=== PATIENT | male | born 1940 | race Caucasian/White ===

== ENCOUNTER 2025-05-26 12:21 | Inpatient (IN) | payer OTHER ==
[2025-05-26 13:28] LABS: ABSOLUTE IMMATURE GRANULOCYTES 0.02 x10^3/uL (0.0-0.031); BASOPHILS # 0.05 x10^3/uL (0.01-0.08); EOSINOPHIL % 3.6 % (0.8-7.0); EOSINOPHILS # 0.24 x10^3/uL (0.04-0.54); MCHC 31.6 g/dl (32.3-36.5); MEAN CELL VOLUME 97.9 fl (79.0-92.2); MEAN PLT VOLUME 12.4 fl (9.4-12.4); MONOCYTE # 0.72 x10^3/uL (0.30-0.82); MONOCYTE % 10.7 % (5.3-12.2); RDW 14.5 % (12.6-16.6)
[2025-05-26 13:47] LABS: GLUCOSE,RANDOM 105.0 mg/dL (74-106); TOT PROT 6.3 g/dl (6.4-8.2)
[2025-05-26 13:48] LABS: CO2 24.0 mmol/L (21-32)
[2025-05-26 13:50] LABS: ALK PHOS 120.0 U/L (40-150)
[2025-05-26 13:52] LABS: SGOT/AST 27.0 U/L (5-34); SGPT/ALT 16.0 U/L (0-55)
[2025-05-26 13:53] LABS: CREATININE 1.2 mg/dL (0.55-1.3)
[2025-05-26] MEDS ORDERED: ENOXAPARIN NA (PORCINE) 80 MG/0.8 ML DISP.SYRIN SQ ONE (15:07)
[2025-05-26] MEDS: ENOXAPARIN NA (PORCINE) 80 MG/0.8 ML DISP.SYRIN SQ ONE (15:14)
[2025-05-26 16:17] LABS: EPI CELLS 8 /uL (0-25.1); HYALINE CASTS 0 /uL (0-3.1); URINE APPEARANCE CLEAR; URINE BACTERIA 4288 /uL (0-1359); URINE BILIRUBIN NEGATIVE (NEGATIVE); URINE COLOR YELLOW; URINE GLUCOSE (UA) NEGATIVE (NEGATIVE); URINE KETONE NEGATIVE (NEGATIVE); URINE LEUK ESTERASE 2+ (NEGATIVE); URINE NITRITE POSITIVE (NEGATIVE); URINE PROTEIN NEGATIVE (NEGATIVE); URINE RBC 32 /uL (0-23.9); URINE UROBILINOGEN 0.2 mg/dL (0.2-1.0); URINE WBC 38 /uL (0-25.8)
[2025-05-26] MEDS ORDERED: CEFTRIAXONE 1 GM/50 ML BAG ONE (18:40)
[2025-05-26 20:08] LABS: INR 1.08 (0.83-1.09); PROTHROMBIN TIME (PATIENT) 11.9 SEC (9.7-13.0)
[2025-05-26 20:10] LABS: ACTIVATED PTT 36.0 SECONDS (25.2-36.5)
[2025-05-27] MEDS ORDERED: ACETAMINOPHEN 325 MG TABLET (FP) PO PRN (00:09)
[2025-05-27 01:34] VITALS: BMI 24.6
[2025-05-27] MEDS: ENOXAPARIN NA (PORCINE) 80 MG/0.8 ML DISP.SYRIN SQ SCH (03:56)
[2025-05-27 06:50] LABS: ABSOLUTE IMMATURE GRANULOCYTES 0.03 x10^3/uL (0.0-0.031); BASOPHILS # 0.05 x10^3/uL (0.01-0.08); EOSINOPHIL % 3.5 % (0.8-7.0); EOSINOPHILS # 0.29 x10^3/uL (0.04-0.54); MCHC 32.3 g/dl (32.3-36.5); MEAN CELL VOLUME 94.8 fl (79.0-92.2); MEAN PLT VOLUME 12.7 fl (9.4-12.4); MONOCYTE # 0.71 x10^3/uL (0.30-0.82); MONOCYTE % 8.6 % (5.3-12.2); RDW 14.2 % (12.6-16.6)
[2025-05-27 07:11] LABS: GLUCOSE,RANDOM 84.0 mg/dL (74-106)
[2025-05-27 07:12] LABS: CO2 23.0 mmol/L (21-32)
[2025-05-27 07:17] LABS: CREATININE 0.96 mg/dL (0.55-1.3)
[2025-05-27] MEDS: MEMANTINE HCL 5 MG TABLET (UD) PO SCH (09:10)
[2025-05-27] MEDS: ISOSORBIDE MONONITRATE 60 MG TAB.SR.24H (FP) PO SCH (09:10)
[2025-05-27] MEDS: MULTIVITAMINS (DAILY MVI) TABLET (FP) PO SCH (09:10)
[2025-05-27] MEDS: ESCITALOPRAM OXALATE 10 MG TABLET PO SCH (09:10)
[2025-05-27] MEDS: ASCORBIC ACID 500 MG TABLET (FP) PO SCH (09:10)
[2025-05-27] MEDS: TAMSULOSIN HCL 0.4 MG CAP PO SCH (09:11)
[2025-05-27] MEDS: CHOLECALCIFEROL (VIT D3) 1,000 UNIT (25 MCG) TABLET PO SCH (09:11)
[2025-05-27] MEDS: amLODIPine BESYLATE 5 MG TABLET (FP) PO SCH (09:11)
[2025-05-27] MEDS: CEFTRIAXONE 1 GM in DEXTROSE 5%-WATER - 50 ML IVPB SCH (09:11)
[2025-05-27] MEDS: PANTOPRAZOLE 40 MG TABLET PO SCH (09:11)
[2025-05-27] MEDS: LISINOPRIL 20 MG TABLET PO SCH (09:11)
[2025-05-27] MEDS: FINASTERIDE 5 MG TABLET (FP) PO SCH (18:04)
[2025-05-27] MEDS: SENNOSIDES 8.6MG TABLET (FP) PO SCH (21:53)
[2025-05-27] MEDS: ROSUVASTATIN CA 5 MG TABLET PO SCH (21:53)
[2025-05-28] MEDS: DOCUSATE SODIUM 100 MG CAPSULE (FP) PO PRN (07:08)
[2025-05-28 10:06] VITALS: RESP 14
[2025-05-28] MEDS: POLYETHYLENE GLYCOL (HEALTHYLAX) 3350 17 GM PACKET PO SCH (11:31)
[2025-05-28 15:35] VITALS: BP 142/74; PULSE 66; TEMP 98.1
== END 2025-05-28 15:48 | DRG 300 ==
LOC: JER 12:21 → JERBED 15:55 → J4W 22:59 → OBSVTOIN 05-27 13:26
PROVIDERS: ADMIT Internal Medicine; ATTEND Internal Medicine
DX: I82.402 Acute embolism and thrombosis of unspecified deep veins of left lower extremity (principal); N39.0 Urinary tract infection, site not specified; I10 Essential (primary) hypertension; F03.90 Unspecified dementia, unspecified severity, without behavioral disturbance, psychotic disturbance, mood disturbance, and anxiety; E78.5 Hyperlipidemia, unspecified; K59.00 Constipation, unspecified; N40.0 Benign prostatic hyperplasia without lower urinary tract symptoms; R29.6 Repeated falls; K21.9 Gastro-esophageal reflux disease without esophagitis; F41.9 Anxiety disorder, unspecified; R55 Syncope and collapse; B96.5 Pseudomonas (aeruginosa) (mallei) (pseudomallei) as the cause of diseases classified elsewhere; B95.4 Other streptococcus as the cause of diseases classified elsewhere; W18.30XA Fall on same level, unspecified, initial encounter; Y93.9 Activity, unspecified; Y92.129 Unspecified place in nursing home as the place of occurrence of the external cause; Y99.9 Unspecified external cause status; Z85.51 Personal history of malignant neoplasm of bladder
CPT/HCPCS: 36415; 70450-TC; 71045-TC-FY; 72125-TC; 72170-TC-FY; 76857; 80048; 80053; 81003; 83735; 84484; 85025; 85610; 85730; 87086; 87635; 93005; 93010; 93971-TC-RT; 99291; G0378